=== PATIENT | female | born 2000 | race Caucasian/White ===

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

== ENCOUNTER 2019-02-26 09:51 | Emergency (ER) | payer BC ==
--- NOTE | 2019-02-26 11:35 | EDM.PDOC ---
ED HPI GENERAL MEDICAL PROBLEM - General Chief Complaint: Allergic Reaction Stated Complaint: ALLERGIC REACTION Time Seen by Provider: 02/26/19 10:23 Source of Information: Reports: Patient History Limitations: Reports: No Limitations - History of Present Illness INITIAL COMMENTS - FREE TEXT/NARRATIVE: 2 days ago this lady had a sore throat and went to the walk-in clinic. A strep test was negative. The doctor put her on Zithromax. She took 1 tablet and broke out in a rash. She called back and this was changed to cephalexin. She took that yesterday and this morning she woke up with a severe rash even on her face and hands. It itches so she took some Benadryl earlier today Generalized Pain Score (Numeric/FACES): 5 - Related Data Allergies Allergy/AdvReac Type Severity Reaction Status Date / Time montelukast sodium Allergy Hives Verified 02/26/19 10:14 [From Singulair] sumatriptan [From Imitrex] Allergy Chest Verified 02/26/19 10:14 Presssure Home Meds: Home Meds Norgestrel-Ethinyl Estradiol [[id number] Tablet] 1 tab PO DAILY 02/07/19 [ History] cephALEXin [Cephalexin] 1 tab PO BID 02/26/19 [History] Past Medical History HEENT History: Reports: Impaired Vision Respiratory History: Reports: Asthma Musculoskeletal History: Reports: Fracture Neurological History: Reports: Migraines - Infectious Disease History Infectious Disease History: Reports: Chicken Pox - Past Surgical History HEENT Surgical History: Reports: Oral Surgery Social & Family History - Tobacco Use Smoking Status *Q: Never Smoker - Caffeine Use Caffeine Use: Reports: Soda - Recreational Drug Use Recreational Drug Use: No ED ROS ALLERGIC REACTION - Review of Systems Review Of Systems: See Below Constitutional: Reports: No Symptoms HEENT: Reports: Throat Pain Respiratory: Reports: No Symptoms Cardiovascular: Reports: No Symptoms Endocrine: Reports: No Symptoms GI/Abdominal: Reports: No Symptoms : Reports: No Symptoms Musculoskeletal: Reports: No Symptoms Skin: Reports: Rash Neurological: Reports: No Symptoms Psychiatric: Reports: No Symptoms Hematologic/Lymphatic: Reports: No Symptoms Immunologic: Reports: No Symptoms ED EXAM GENERAL NO PERIP PULSE - Physical Exam Exam: See Below Exam Limited By: No Limitations General Appearance: Alert, WD/WN, Mild Distress Eye Exam: Bilateral Eye: Normal Inspection Nose: Normal Inspection Throat/Mouth: Other (A few small ulcerations to the soft palate. Surrounding tissues moderately erythematous. Tonsils appear atrophic. No pus) Head: Atraumatic Neck: Normal Inspection Respiratory/Chest: Lungs Clear Cardiovascular: Regular Rate, Rhythm, No Murmur GI/Abdominal: Non-Tender Back Exam: Other (CT scan) Extremities: Other (C skin) Neurological: Alert, Oriented Skin Exam: Warm, Dry, Other (There is a rash over most of the body. There is heavy rash to the face that looks like acne. There are widely scattered lesions to the extremities some look a little bit like pustules others are maculopapular. There are a number of small red spots macules to the palms of the hands. There is just a very fine maculopapular rash to the back. I did not check her chest or abdomen) Course - Vital Signs Last Recorded V/S: Last Vital Signs Temp 36.7 C 02/26/19 10:12 Pulse 95 02/26/19 10:12 Resp 16 02/26/19 10:12 BP 117/79 02/26/19 10:12 Pulse Ox 98 02/26/19 10:12 - Orders/Labs/Meds Labs: Laboratory Tests 02/26/19 02/26/19 Range/Units 10:35 10:35 WBC 5.2 (4.5-11.0) K/uL RBC 4.65 (3.30-5.50) M/uL Hgb 14.2 (12.0-15.0) g/dL Hct 41.3 (36.0-48.0) % MCV 89 (80-98) fL MCH 31 (27-31) pg MCHC 34 (32-36) % Plt Count 304 (150-400) K/uL Neut % (Auto) 58 (36-66) % Lymph % (Auto) 29 (24-44) % [place] % (Auto) 13 H (2-6) % Eos % (Auto) 1 L (2-4) % Baso % (Auto) 1 (0-1) % Monoscreen Negative (NEGATIVE) - Re-Assessments/Exams Free Text/Narrative Re-Assessment/Exam: 02/26/19 11:49 CBC was unremarkable except increased monocytes. Monospot is negative. Overall I think this is probably of viral pharyngitis with a drug rash. I doubt that the rash is cause directly by a virus. Will treat with prednisone and then she'll need to follow-up with her PCP regarding drug allergies Departure - Departure Time of Disposition: 11:32 Disposition: Home, Self-Care 01 Condition: Fair Clinical Impression: Allergic drug rash - Discharge Information Instructions: Drug Rash Referrals: Rosette Barron CNM [Primary Care Provider] - Forms: ED Department Discharge Additional Instructions: Stop taking both of the antibiotics. You may continue taking Benadryl 50 mg 4 times a day if needed. This will make you a little bit sleepy. Take prednisone 20 mg tablets, 2 tablets per day, either 2 tablets at once or one tablet twice daily for 5 days. Take plenty of pictures of the rash and then follow-up with your Dr. tomorrow. Hopefully the rash will go away but at any rate you need to talk with your Dr. about whether or not you are allergic to both of these antibiotics. This is a serious problem that will affect you later on.
[2019-02-26 11:55] VITALS: BP 117/79; PULSE 95
== END 2019-02-26 11:46 | disposition home or self-care (01) ==
LOC: JP.ED 09:51
DX: L27.0 Generalized skin eruption due to drugs and medicaments taken internally (principal); T36.3X5A Adverse effect of macrolides, initial encounter; J45.909 Unspecified asthma, uncomplicated; Z88.8 Allergy status to other drugs, medicaments and biological substances
CPT/HCPCS: 36415; 85025; 86308; 99283

== ENCOUNTER 2021-12-29 11:34 | Emergency (ER) | payer BC ==
[2021-12-29 12:54] VITALS: PULSE 78
[2021-12-29 13:55] VITALS: BP 106/74
== END 2021-12-29 14:38 | disposition home or self-care (01) ==
LOC: JP.ED 11:34
DX: N92.6 Irregular menstruation, unspecified (principal); Z88.1 Allergy status to other antibiotic agents; Z88.8 Allergy status to other drugs, medicaments and biological substances
CPT/HCPCS: 36415; 84702; 84703; 99284

== ENCOUNTER 2022-05-14 08:49 | Emergency (ER) | payer BC, MEDICAID ==
[2022-05-14 08:58] VITALS: BP 121/82; PULSE 118
[2022-05-14 10:00] LABS: ESTIMATED GFR 125 mL/min (>60)
[2022-05-14] MEDS ORDERED: cefTRIAXone 1 GM Vial IM ONE (11:05)
[2022-05-14] MEDS ORDERED: cefTRIAXone 1 GM, Lidocaine 1% 2.1 ML IM ONE ×2 (11:45)
== END 2022-05-14 12:04 | disposition home or self-care (01) ==
LOC: JP.ED 08:49
DX: O23.02 Infections of kidney in pregnancy, second trimester (principal); N12 Tubulo-interstitial nephritis, not specified as acute or chronic; Z3A.15 15 weeks gestation of pregnancy; Z88.1 Allergy status to other antibiotic agents; Z88.8 Allergy status to other drugs, medicaments and biological substances; Z79.899 Other long term (current) drug therapy
CPT/HCPCS: 36415; 76705; 80053; 81001; 85025; 86140; 87086; 96372; 99284; J0696

== ENCOUNTER 2022-06-02 07:37 | Emergency (ER) | payer BC, MEDICAID ==
[2022-06-02 07:54] VITALS: BP 137/81; PULSE 106
== END 2022-06-02 10:37 | disposition home or self-care (01) ==
LOC: JP.ED 07:37
DX: O45.92 Premature separation of placenta, unspecified, second trimester (principal); Z3A.17 17 weeks gestation of pregnancy; Z88.1 Allergy status to other antibiotic agents; Z88.8 Allergy status to other drugs, medicaments and biological substances; Z79.82 Long term (current) use of aspirin
CPT/HCPCS: 36415; 76815; 81001; 85018; 85610; 99284